=== PATIENT | female | born 1960 | race Caucasian/White ===

== ENCOUNTER 2017-03-11 11:27 | Emergency (ER) | payer OTHER ==
[~2017-03-11] VITALS: Ht 162.6 cm; Wt 90.5 kg
[2017-03-11 11:37] VITALS: BP 147/102; PULSE 73; RESP 15; O2SAT 98
--- NOTE | 2017-03-11 12:16 | ED.REPORT ---
HPI-Extremity Problem Lower Date of Service Mar 11, 2017 ED Provider: Doc,Ed MD History of Present Illness: right leg pain started last night. Hx of blood clot with . primary care is taylor hermosillo. normally healthy, diabetic , polymysotitis. Nursing Notes Stated Complaint: RED LUMP AND PAIN IN RT LEG Chief Complaint: Extremity Trauma Nursing Notes Reviewed: Yes Allergies: Coded Allergies: itraconazole (Verified Allergy, Severe, CAN'T BREATHE, 03/11/17) lidocaine (Verified Allergy, Severe, 03/11/17) iodine (Verified Allergy, Mild, BETADINE ITCH/RASH, 03/11/17) meperidine (Verified Allergy, Mild, SEVERE ITCH, 03/11/17) Uncoded Allergies: Itraconazole (Allergy, Severe, CAN'T BREATHE, 05/06/04) Lidocaine (Allergy, Severe, 05/06/04) Iodine (Allergy, Mild, BETADINE ITCH/RASH, 05/06/04) Meperidine (Allergy, Mild, SEVERE ITCH, 05/06/04) IV IODINE CONTRAST:LOC (Allergy, Unknown, 05/06/04) Epinephrine (Adverse Reaction, Mild, QUESTIONABLE, 05/06/04) General Time Seen by MD: 12:15 Chief Complaint Leg injury right Hx Obtained From: Patient Review of Systems Basic Review of Systems Eyes: Vision NL, No discharge : No dysuria, No frequency Psychiatric: Normal thought content Physical Exam Initial Vital Signs Vital Signs (First) Date Time Temp Pulse Resp B/P Pulse Ox O2 Delivery O2 Flow Rate FiO2 03/11/17 11:37 37.2 73 15 147/102 98 03/11/17 15:21 Room Air Initial VS: Reviewed, Vital signs abnormal General/Constitutional: Well-developed, Well-nourished Head / Eyes: Atraumatic, Normocephalic, PERRL ENT: Mucous membranes moist, Conjunctiva normal, No scleral icterus Neck: Supple, Non-tender, Full range of motion Respiratory: Breath sounds normal, Clear to auscultation, No respiratory distress Cardiovascular: Regular rate & rhythm, Heart sounds normal, Intact distal pulses Abdomen / GI: Soft, Non-tender, No guarding, No rebound, No distention Back: No CVA tenderness Lymphatic: No lymphadenopathy Upper Extremities: Vascular intact, Neuro intact, No swelling, No tenderness Skin: Warm, Dry, No cyanosis Neurologic: Alert, Oriented, Nonfocal Psychiatric: Mood/affect normal, Behavior normal, Normal thought content c/o pain started on right lower leg and going up leg. No sign of erthyma, red streaks, increased warmth Ankle / Foot: Atraumatic, Inspection NL, Full range of motion, No swelling General/Constitutional: Awake, Alert, No acute distress, Well appearing, Well developed, Well hydrated, Well nourished, Cooperative, Not toxic appearing Respiratory / Chest: Atraumatic, Breath sounds NL, Breath sounds = bilat Cardiovascular: Heart rate NL, Regular rhythm, Heart sounds NL, No gallop Skin: Atraumatic, Color NL, No rash, Warm, Dry, Intact, Turgor NL, No swelling Rash / Lesion Notes: hypersensitive to the lightest touch Interpretation & Diagnostics Lab Results Interpretation Result Diagram: 03/11/17 1320 03/11/17 1330 Test 03/11/17 13:20 03/11/17 13:30 White Blood Count 5.7th/mm3 (3.8-10.1) Red Blood Count 5.13mil/mm3 (3.90-5.20) Hemoglobin 14.2g/dL (12.0-15.6) Hematocrit 42.1% (35.0-46.0) Mean Corpuscular Volume 82.1fL (81-100) Mean Corpuscular Hemoglobin 27.7pg (27.0-35.0) Mean Corpuscular Hemoglobin Concent 33.7% (32.0-37.0) Red Cell Distribution Width 12.9% (12.3-15.4) Platelet Count 177bil/L (150-400) Neutrophils (%) (Auto) 59.2% (40-74) Lymphocytes (%) (Auto) 33.2% (14-46) Monocytes (%) (Auto) 6.7% (4-12) Eosinophils (%) (Auto) 0.7% (0-5) Basophils (%) (Auto) 0.2% (0-3) Sodium Level 138mEq/L (134-144) Potassium Level 4.2mEq/L (3.5-5.2) Chloride Level 101mEq/L (97-108) Carbon Dioxide Level 21mmol/L (18-29) Blood Urea Nitrogen 13mg/dL (6-24) Creatinine 0.76mg/dL (0.57-1.00) Estimat Glomerular Filtration Rate 112mL/min (>59) Glucose Level 194mg/dL (60-99) Calcium Level 9.5mg/dL (8.5-10.1) Total Bilirubin 0.5mg/dL (0.0-1.2) Aspartate Amino Transf (AST/SGOT) 36U/L (0-50) Alanine Aminotransferase (ALT/SGPT) 41U/L (0-32) Alkaline Phosphatase 107U/L (25-150) Total Protein 7.1g/dL (6.4-8.4) Albumin 4.3g/dL (3.4-5.0) US Soft Tissue/Musculoskeletal No sign of any clot formation or superficial clot per verbal report Re-Eval/Medical Decision Med Decision/Clinical Course 56 year old female presents for evualation of right leg pain. No sign of any erthyma or swelling. US is negative. Labs are normal except for elevation in blood sugar. No sign of DVT, superficail clot or bony damage. Discharge & Departure Impression: Primary Impression: Leg pain, right Disposition: Home Additional Instructions: The ultrasound does not show any sign of a blood clot. The labs are normal with the exception of blood sugar increased at 194. No sign of any infection. Wear the thigh high compression hose. Apply ice after the compression hose. Follow with primary care tomorrow. Can use hydrocodone 1 at night as needed for severe pain. Referrals: Jerica Atkinson MD (PCP) EDSupervising Provider for APC: Miguel Banks MD copies to: Jerica Atkinson MD, Sue ARNP Mar 11, 2017 12:16
[2017-03-11 13:47] LABS: BASOPHILS % (AUTO) 0.2 % (0-3); EOSINOPHILS % (AUTO) 0.7 % (0-5); MONOCYTES % (AUTO) 6.7 % (4-12); Mean Corpuscular Hemoglobin 27.7 pg (27.0-35.0); Mean Corpuscular Volume 82.1 fL (81-100); NEUTROPHILS % (AUTO) 59.2 % (40-74); Platelet Count 177 bil/L (150-400)
[2017-03-11 15:21] VITALS: BP 135/76; PULSE 86; RESP 21; O2SAT 96
[2017-03-11 15:33] VITALS: BP 121/82; PULSE 70; O2SAT 100
--- NOTE | 2017-03-11 16:49 | DRSVH ---
PROCEDURE: US VEINOUS LEG DUPLEX UNILATERAL, RIGHT INDICATIONS: r/o DVT TECHNIQUE: Real-time imaging, as well as color and pulse Doppler interrogation, were performed of the lower extr emity deep veins from the inguinal ligament to the popliteal fossa. COMPARISON: None. FINDINGS: The deep veins are normally compressible, and free of intraluminal thrombus. Color and pu lse Doppler demonstrate normal phasic intraluminal flow. There is normal augmentation response to di stal compression maneuver. IMPRESSION: No evidence of deep venous thrombosis. Dictated by: Lupe Wang M.D. on 03/11/2017 at 16:47 Approved by: Lupe Wang M.D. on 03/11/2017 at 16:47
== END 2017-03-11 15:30 | disposition home or self-care (01) ==
LOC: SED 11:27
DX: M79.604 Pain in right leg (principal); Z88.8 Allergy status to other drugs, medicaments and biological substances; Z91.041 Radiographic dye allergy status